=== PATIENT | female | born 1990 | race Caucasian/White ===

== ENCOUNTER 2017-11-26 15:49 | Emergency (ER) | payer BC, SELFPAY ==
[2017-11-26 15:50] VITALS: BP 114/71; PULSE 93; RESP 18; TEMP 36.5; O2SAT 98; BMI 45.3
--- NOTE | 2017-11-26 15:57 | XR_ITS ---
XR chest 2V INDICATION: Chest pain COMPARISON: None available FINDINGS: The cardiovascular structures are unremarkable. No mediastinal shift or hilar mass is evident. The lungs are well expanded and clear bilaterally. The costophrenic sulci are sharp. No significant bony anomalies are apparent. IMPRESSION: Negative chest.
[2017-11-26 16:08] LABS: Microscopic, Urine URINE MICROSCOPIC (MICROSCOPIC)
[2017-11-26 16:09] LABS: Appearance,Urine CLEAR (Clear); Basophils % 0.3 % (0.1-2.0); Bilirubin,Urine Negative (Negative); Blood, Urine Negative (Negative); Color,Urine YELLOW (Yellow); Eosinophils # 0.1 K/mm3 (0.0-0.4); Eosinophils % 0.4 % (0.1-12.0); Glucose,Urine (UA) Negative (Negative); Hematocrit 41.3 % (37.0-47.0); Hemoglobin 13.2 g/dL (12.2-16.2); Ketones,Urine Negative (Negative); Leukocyte Esterase,Urine TRACE (Negative); Lymphocytes # 2.4 K/mm3 (0.7-4.5); Lymphocytes % 17.8 K/mm3 (10-50); Mean Corpuscular HGB Conc 32.1 g/dL (31.8-35.4); Mean Corpuscular Hemoglobin 26.2 pg (27.0-31.2); Mean Corpuscular Volume 81.6 fl (81-99); Mean Platelet Volume 7.3 fl (7.4-10.4); Monocytes # 0.8 K/mm3 (0.1-1.0); Monocytes % 6.1 % (1.7-9.3); Neutrophils # 10.1 K/mm3 (1.8-7.8); Neutrophils % 75.3 % (37.0-80.0); Nitrate,Urine Negative (Negative); Platelet Count 373 K/mm3 (142-424); Protein,Urine Negative (Negative); Red Blood Count 5.06 M/mm3 (4.20-5.40); Red Cell Distribution Width 12.9 % (11.5-17.5); Specific Gravity, Urine 1.025 (1.005-1.030); Urobilinogen,Urine 0.2 EU/dl (0.2); White Blood Count 13.5 K/mm3 (4.8-10.8)
[2017-11-26 16:11] LABS: Urine Pregnancy, HCG Qual. Negative (Negative)
[2017-11-26 16:20] LABS: Lipase 111 u/L (73-393)
[2017-11-26 16:21] LABS: Bacteria,Urine 2+ /lpf; RBC,Urine Occasional #/hpf (0-3)
[2017-11-26 17:12] LABS: Alanine Aminotransferase 20 U/L (12-78); Albumin Level 3.3 gm/dL (3.4-5.0); Albumin/Globulin Ratio 0.8 (1.1-1.8); Alkaline Phosphatase 118 U/L (46-116); Amylase 43 U/L (25-125); Anion Gap 11.9 mEq/L (5-15); Aspartate Amino Transferase 11 U/L (15-37); Bilirubin,Total 0.2 mg/dL (0.2-1.0); Blood Urea Nitrogen 10 mg/dL (7-18); CKMB Relative Index 1.1 U/L (0-4.0); Calcium 8.5 mg/dL (8.5-10.1); Carbon Dioxide 27 mmol/L (21.0-32.0); Chloride 105 mmol/L (98-107); Creatine Kinase 44 U/L (26-192); Creatine Kinase MB < 0.5 mg/ml (0.0-3.6); Creatinine Clearance Estimated 105 mL/min (0-300); Estimated Glomerular Filt Rate 119 ml/min (>60); GFR (African American) 144 ML/MIN (>60); Glucose 109 mg/dL (74-106); Potassium 3.9 mmoL/L (3.5-5.1); Sodium 140 mmol/L (136-145); Total Protein,Serum 7.3 gm/dL (6.4-8.2); Troponin I < 0.02 ng/ml (0.00-0.06)
--- NOTE | 2017-11-26 17:32 | [facility].EDCP ---
ED Disposition Clinical Impression: Chest pain Qualifiers: Chest pain type: other chest pain Qualified Code(s): R07.89 - Other chest pain Disposition: Home, Self-Care Condition on Discharge: Good Instructions: DI for Atypical Chest Pain Additional Instructions: Please follow-up with the salesforce developer, Dr. Pollo Acevedo, within the next 2 days for additional outpatient workup. Referrals: Octavio Acevedo MD [Staff Physician] - Time of Disposition: 17:32 - Critical Care Critical Care Time: No Attestation: On 11/26/17, the high probability of a clinically significant, sudden or life threatening deterioration of the following system(s) required my full and direct attention, intervention and personal management. The time I documented below is in addition to time spent performing reported procedures but includes the following listed in this critical care notation. Medical Decision Making - Medical Records Medical records reviewed: Yes: I reviewed the patient's medical records. - Bran Inquiry Pt receiving controlled substance: No Vital Signs: 11/26/17 15:50 11/26/17 17:48 Temperature 97.7 F 98.0 F Temperature Source Oral Oral Pulse Rate 72 Pulse Rate [Right Brachial] 93 H Respiratory Rate 18 20 Blood Pressure 116/84 Blood Pressure [Right Radial Artery] 114/71 Blood Pressure Mean [Right Radial Artery] 85 Blood Pressure Source Automatic Cuff Blood Pressure Source [Right Radial Artery] Automatic Cuff Blood Pressure Position Sitting Blood Pressure Position [Right Radial Artery] Supine 02 Sat by Pulse Oximetry 98 Oxygen Delivery Method Room Air Room Air - Lab Data Lab results reviewed: Yes: I reviewed the patient's lab results. Lab Results 11/26/17 16:00: Urine Color Yellow, Urine Appearance Clear, Urine pH 6.0, Ur Specific [place] 1.025, Urine Protein Negative, Urine Glucose (UA) Negative, Urine Ketones Negative, Urine Blood Negative, Urine Nitrate Negative, Urine Bilirubin Negative, Urine Urobilinogen 0.2, Ur Leukocyte Esterase Trace, Urine RBC Occasional, Urine WBC 5-10, Ur Squamous Epith Cells 10-20, Urine Bacteria 2+ 11/26/17 16:00: WBC 13.5 H, RBC 5.06, Hgb 13.2, Hct 41.3, MCV 81.6, MCH 26.2 L, MCHC 32.1, RDW 12.9, Plt Count 373, MPV 7.3 L, Neut % (Auto) 75.3, Lymph % (Auto) 17.8, [place] % (Auto) 6.1, Eos % (Auto) 0.4, Baso % (Auto) 0.3, Neut # (Auto) 10.1 H, Lymph # (Auto) 2.4, [place] # (Auto) 0.8, Eos # (Auto) 0.1, Baso # (Auto) 0.0 11/26/17 16:00: Urine HCG, Qual Negative 11/26/17 16:00: Sodium 140, Potassium 3.9, Chloride 105, Carbon Dioxide 27, Anion Gap 11.9, BUN 10, Creatinine 0.60, Estimated Creat Clear 105, Estimated GFR 119, Est GFR ( Amer) 144, Glucose 109 H, Calcium 8.5, Total Bilirubin 0.2, AST 11 L, ALT 20, Alkaline Phosphatase 118 H, Total Creatine Kinase 44, CK-MB (CK-2) < 0.5, CK-MB (CK-2) Rel Index 1.1, Troponin I < 0.02, Total Protein 7.3, Albumin 3.3 L, Globulin 4.0 H, Albumin/Globulin Ratio 0.8 L, Amylase 43 11/26/17 16:00: Lipase 111 Result diagrams: 11/26/17 16:00 11/26/17 16:00 Orders (Tests/Meds): ORDERS Category Date Time Status ECG Request by /Tim Stat Y 11/26/17 15:59 Ordered - Radiology Data #1 Image(s): Chest Image Reviewed: Yes I reviewed the patient's radiology results, Yes I reviewed the patient's radiology image - ECG Data Tracing #1 I reviewed this ECG and interpreted as documented below: ECG normal with no acute: arrhythmias, ischemia, conduction abnormalities, chamber hypertrophy Normal Sinus Rhythm: Yes Chest Pain HPI - General Chief Complaint: Chest Pain Stated Complaint: CHEST PAIN Time Seen by Provider: 11/26/17 16:15 Mode of Arrival: Family Vehicle Limitations: No Limitations Description of Symptoms (Recalled from ER Triage Doc. by RN): C/O CHEST PAIN ON AND OFF SINCE SUNDAY WITH RADIATION TO RIGHT ARM MOSTLY BUT SOME IN LEFT ARM. DESCRIBES CP A DULL ACHE. ALSO C/O PAIN BETWEEN SHOULDER BLADES WITH LIGHT HEA
[2017-11-26 17:48] VITALS: BP 116/84; PULSE 72; RESP 20; TEMP 36.7; O2SAT 98
== END 2017-11-26 17:49 | disposition home or self-care (01) ==
PROVIDERS: Emergency Provider Emergency Medicine; Family Provider Family Medicine; PCP Family Medicine
DX: R07.89 Other chest pain (principal); R42 Dizziness and giddiness
CPT/HCPCS: 71046; 80053; 81001; 81025; 82150; 82550; 82553; 83690; 84484; 85025; 87086; 93005; 99283